=== PATIENT | male | born 1975 | race Caucasian/White ===

== ENCOUNTER 2017-10-10 06:20 | Emergency (ER) | payer SELFPAY ==
[2017-10-10] MEDS: LORAZEPAM 1 MG TAB PO (07:12)
== END 2017-10-10 09:00 | disposition home or self-care (01) ==
LOC: E/R 06:20
DX: F10.230 Alcohol dependence with withdrawal, uncomplicated (principal); R40.2142 Coma scale, eyes open, spontaneous, at arrival to emergency department; R40.2362 Coma scale, best motor response, obeys commands, at arrival to emergency department; R40.2252 Coma scale, best verbal response, oriented, at arrival to emergency department
CPT/HCPCS: 82962; 93005; 99283-25